=== PATIENT | male | born 1935 | race American Indian/Alaskan Native ===

== ENCOUNTER 2017-09-12 15:07 | Emergency (ER) | payer MEDICARE ==
--- NOTE | 2017-09-12 15:41 | Emergency Department Report ---
ED CPR HPI - General Chief Complaint: Cardiac Arrest/CPR Stated Complaint: CARDIAC ARREST Time Seen by Provider: 09/12/17 15:07 Source: EMS Mode of arrival: Stretcher Limitations: Altered Mental Status, Other (cardiac arrest) - History of Present Illness Initial Comments: Is an 82-year-old male that presented via EMS in a cardiac arrest. Per EMS C Varner going on for 30 minutes and 3 rounds of epi had been given along with 1 round of bicarbonate. Per EMS upon arrival patient was cold with no respiratory activity or for a pulse and in PEA. No known last well time per EMS. No family members available MD Complaint: found unresponsive Place: home Bystander CPR Performed: No AED Applied by Bystander/Property Claims Manager: No Shock Advised: No - Related Data Allergies Allergy/AdvReac Type Severity Reaction Status Date / Time Unable to Assess Allergy Unverified 09/12/17 15:24 ED Review of Systems ROS: Stated complaint: CARDIAC ARREST Other details as noted in HPI Comment: Unobtainable due to pts medical conditions ED Past Medical Hx - Past Medical History Previous Medical History?: Yes Hx Hypertension: Yes Hx Diabetes: Yes Hx of Cancer: Yes (prostate) - Surgical History Past Surgical History?: Yes Additional Surgical History: R. kidney removal ED Physical Exam - General Limitations: Other (C code note) ED Course - Reevaluation(s) Reevaluation #1: Assumed care. CPR continued. ET tube placement verified. IV access patent. SEE code note 09/12/17 14:53 Critical Care Time: Yes Critical care attestation.: If time is entered above; I have spent that time in minutes in the direct care of this critically ill patient, excluding procedure time. ED Disposition Clinical Impression: Cardiopulmonary arrest Disposition: DC-20 Is pt being admited?: No Does the pt Need Aspirin: No Time of Disposition: 15:03
== END 2017-09-12 20:00 ==
LOC: ED 15:07
DX: I46.9 Cardiac arrest, cause unspecified (principal); I10 Essential (primary) hypertension; E11.9 Type 2 diabetes mellitus without complications
CPT/HCPCS: 92950